=== PATIENT | male | born 2000 | race African-American/Black ===

== ENCOUNTER 2020-02-11 11:30 | Emergency (ER) | payer OTHER ==
[~2020-02-11] VITALS: Ht 182.9 cm; Wt 65.8 kg
[2020-02-11] MEDS ORDERED: NOHOMEMEDICATIONS (11:36)
[2020-02-11] MEDS ORDERED: MOBIC15 MG PO (12:30)
[2020-02-11 12:51] VITALS: BP 130/85
== END 2020-02-11 12:51 | disposition home or self-care (01) ==
LOC: ER 11:30
DX: U07.1 COVID-19 (principal)